=== PATIENT | female | born 1955 | race African-American/Black ===

== ENCOUNTER 2023-06-21 22:06 | Inpatient (IN) | payer MEDICARE, MEDICAID ==
[~2023-06-21] VITALS: Ht 154.9 cm; Wt 108.6 kg
[~2023-06-21 22:06] MED LIST: K-DUR20 MEQ PO
[2023-06-22] VITALS (10 sets, daily range): BP systolic 95–127; BP diastolic 48–75; PULSE 58–78; TEMP 98.3–99.2
[2023-06-22] MEDS ORDERED: NORVASC 10MG10 MG PO (01:15)
[2023-06-22] MEDS ORDERED: ELIQUIS 5MG PO (01:15)
[2023-06-22] MEDS ORDERED: COZAAR100 MG PO (01:16)
[2023-06-22] MEDS ORDERED: HCTZ 25MG TAB25 MG PO (01:16)
[2023-06-22] MEDS ORDERED: ANTIVERT 12.512.5 MG PO (01:17)
[2023-06-22] MEDS ORDERED: TOPROL XL100 MG PO (01:19)
[2023-06-22] MEDS ORDERED: CRESTOR20 MG PO (01:19)
[2023-06-22] MEDS ORDERED: OSCAL 500 TAB500 MG PO (01:20)
[2023-06-22] MEDS ORDERED: TYLENOL 500MG500 MG PO (01:20)
[2023-06-22] MEDS ORDERED: VITAMINC500CH (01:20)
[2023-06-22] MEDS ORDERED: ZINC7.5 MG PO (01:21)
--- NOTE | 2023-06-22 01:52 | NUR ---
PT ARRIVED TO ROOM 323 A&OX4 COMPLAINT OF PAIN TO THE LEFT HIP. PT TRANSFERED OVER TO BED USING SLIDE BOARD. LUNG SOUNDS CLEAR, UNLARBORED BREATHING. HEART SOUNDS NORMAL REGULAR RATE. LEFT LEG SLIGHTLY SHORTER THAN RIGHT WITH SOME ROTATION. BLE EDEMA NOTED, NON PITTING. [place] CATHETER WAS INSERTED DUE TO HIP FRACTURE AND PT BEING INCONTINENT. [place] CATHETER INSERTED USING STERILE TECHNIQUE, PT TOLERATED WELL, 10ML STERILE WATER FILLED BALLOON. CLEAR YELLOW URINE DRAINED FROM [place], UA SENT TO LAB. PT DID STATE SHE HIT HER HEAD WHEN SHE FELL, NEURO CHECKS STARTED GCS 15.
[2023-06-22 06:56] LABS: COLLECTION METHOD IN
[2023-06-22 07:35] LABS: BASO % 0.1 % (0.0-2.0); GRAN # 6.7 K/mm3 (1.4-6.5); GRAN % 77.7 % (42.2-75.2); HEMOGLOBIN 10.6 g/dl (12.5-16.0); LYMPH # 1.4 K/mm3 (1.2-3.4); LYMPH % 16.3 % (20.0-51.0); MEAN CELL VOLUME 90 fl (80.0-100.0); MEAN CORPUSCULAR HEMOGLOBIN 30 pg (27-31); MEAN CORPUSCULAR HGB CONC 33 g/dl (33.0-37.0); MEAN PLATELET VOLUME 10.3 fl (7.4-10.4); MONO # 0.5 K/mm3 (0.1-0.6); MONO % 5.7 % (1.7-9.3); PLATELET COUNT 234 K/mm3 (130-400); RED BLOOD COUNT 3.57 M/mm3 (4.10-5.30); REDCELL DISTRIBUTION WIDTH-CV 13.4 % (11.5-14.5)
[2023-06-22 07:37] LABS: HEMATOCRIT 32.2 % (37.0-47.0)
[2023-06-22 07:50] LABS: URINE APPEARANCE Clear (CLEAR/HAZY); URINE BLOOD Negative (NEGATIVE); URINE COLOR Yellow (YELLOW); URINE GLUCOSE Negative (NEGATIVE); URINE KETONE TRACE (NEGATIVE); URINE NITRATE Negative (NEGATIVE); URINE PROTEIN(semi-quant) Negative (NEGATIVE); URINE UROBILINOGEN 0.2 E.U/dL (0.2-1.0)
[2023-06-22 07:51] LABS: SQUAMOUS EPITHELIAL 0-2 /hpf (0-10); URINE RBC 0-2 /hpf (0-2); URINE WBC None Seen /hpf (0-2)
[2023-06-22 08:05] LABS: ALBUMIN 3.3 gm/dL (3.4-4.8); BILIRUBIN,TOTAL 0.8 mg/dL (0.2-1.2); CALCIUM 9.7 mg/dL (8.4-10.2); CREATININE, serum 0.7 mg/dL (0.57-1.11); POTASSIUM 4.1 mmol/L (3.5-4.5); TOTAL PROTEIN 6.8 gm/dL (6.2-8.1)
--- NOTE | 2023-06-22 08:07 | NUR ---
PT RESTING IN BED, DAUGHTER AT BEDSIDE DURING REPORT THEN LEFT FOR THE DAY. PT IS A/O X4, RATING PAIN 10/10 BUT NO OUTWARD SIGNS OF PAIN. PT QUIETLY WATCHING TV. PT TOOK ELOQUIS AND NEEDS 48 HRS TO CLEAR FOR SURGERY PER DR. MIN.
[2023-06-22 10:04] LABS: HEMOGLOBIN 10.7 g/dl (12.5-16.0); MEAN CELL VOLUME 92 fl (80.0-100.0); MEAN CORPUSCULAR HEMOGLOBIN 30 pg (27-31); MEAN CORPUSCULAR HGB CONC 33 g/dl (33.0-37.0); PLATELET COUNT 236 K/mm3 (130-400); RED BLOOD COUNT 3.56 M/mm3 (4.10-5.30); REDCELL DISTRIBUTION WIDTH-CV 13.4 % (11.5-14.5)
[2023-06-22 10:12] LABS: HEMATOCRIT 32.6 % (37.0-47.0)
[2023-06-22] MEDS ORDERED: ANTIVERT 25MG25 MG PO (13:22)
[2023-06-22] MEDS ORDERED: LASIX 20MG TABL20 MG PO (13:27)
[2023-06-22] MEDS ORDERED: OMEGA-3 FISH1000 MG PO (13:28)
--- NOTE | 2023-06-22 14:16 | NUR ---
tube worker met with patient to complete discharge planning. Pt lives alone in [place]. Pt sees Kinga Ugalde for PCP needs and obtains medications from [facility] with no difficulties. Patient has her daughters, marlene and Rianna listed as contacts. Pt said her son, Isaac will also come visit her. Pt says she needs assistance with ADLS, her daughters help her out. She does sponge baths when she needs. She cannot bend down she reports. Pt said this is due to increased weakness and pain. She uses a seated walker, hospital bed, and CPAP for DME. She does not have a DPOA-HC, but completed one with YOMAIRA listing her two daughters. Clerk Boggs and YOMAIRA were witnesses. Copy and original provided. Copy in chart. YOMAIRA informed pt that PT/OT will come and evalaute her when needed to assess for further needs. Pt was agreeable to this. PT/OT pending after surgery per YOMAIRA Black. Discharge Plan: tbd
--- NOTE | 2023-06-22 19:49 | NUR ---
PATIENT SITTING UP IN BED WITH FAMILY AT BEDSIDE. PATIENT ALERT AND ORIENTED. SHIFT ASSESSMENT COMPLETED. EDEMA TO BLE PITTING +1 WITH NO DISCOLORATION OR TENDERNESS. PATIENT STATES PAIN IS 4/10. OXYCODONE GIVEN PER MAR. PATIENT EDUCATED ON NPO STATUS IN EFFECT AT 0000. ALL QUESTIONS ANSWERED. PATIENT DENIES ANY NEEDS OR CONCERNS AT THIS TIME. WILL CONT TO MONITOR.
[2023-06-23] VITALS (15 sets, daily range): BP systolic 89–119; BP diastolic 32–71; PULSE 67–80; TEMP 97.1–98.9
--- NOTE | 2023-06-23 02:33 | NUR ---
PATIENT HAS SLEPT NEARLY ALL SHIFT. NO COMPLAINTS OF PAIN OR DISCOMFORT AT THIS TIME. WILL CONT TO MONITOR.
[2023-06-23 08:56] LABS: BASO % 0.2 % (0.0-2.0); EOS # 0.1 K/mm3 (0.0-0.7); EOS % 1.3 % (0.0-4.0); GRAN % 80.9 % (42.2-75.2); HEMOGLOBIN 10.2 g/dl (12.5-16.0); LYMPH % 11.5 % (20.0-51.0); MEAN CELL VOLUME 93 fl (80.0-100.0); MEAN CORPUSCULAR HEMOGLOBIN 29 pg (27-31); MEAN CORPUSCULAR HGB CONC 31 g/dl (33.0-37.0); MONO # 0.5 K/mm3 (0.1-0.6); MONO % 5.9 % (1.7-9.3); PLATELET COUNT 221 K/mm3 (130-400); RED BLOOD COUNT 3.53 M/mm3 (4.10-5.30); REDCELL DISTRIBUTION WIDTH-CV 13.8 % (11.5-14.5)
[2023-06-23 09:10] LABS: CALCIUM 9.5 mg/dL (8.4-10.2); CREATININE, serum 0.74 mg/dL (0.57-1.11); HEMATOCRIT 32.8 % (37.0-47.0); POTASSIUM 4.3 mmol/L (3.5-4.5)
--- NOTE | 2023-06-23 14:08 | NUR ---
D: Initial visit: Building Maintenance Custodian stopped by room on rounds. Pt was resting and content. A: Pt asked for prayer. Building Maintenance Custodian prayed with pt and she appreciated the visit. P: Building Maintenance Custodian informed pt that if she needed anything to let her nurse know. Building Maintenance Custodian will follow up as needed.
--- NOTE | 2023-06-23 14:45 | NUR ---
bottling room worker presented Medicare.gov list of options for SNF and discussed IPR services. Patient would like IPR to be her first choice but will review the options for SNF. SW will follow up with patient for her other choices.
--- NOTE | 2023-06-23 16:47 | NUR ---
stamping die try out worker stopped by patient's room, patient was not back from surgery yet and her family members were not in the room. SW attempted to contact patient's daughter, Alanna. SW was sent to [employer]. SW contacted daughter, Rianna. Rianna expressed she would like to wait to see if inpatient rehab is able to accept patient before sending other referrals. Rianna expressed they would discuss with her mother other options but at this time they are unable to provide another choice besides IPR. YOMAIRA notified IPR director. YOMAIRA will continue to follow.
[2023-06-23 19:47] LABS: BASO % 0.1 % (0.0-2.0); EOS % 0.1 % (0.0-4.0); GRAN # 13.6 K/mm3 (1.4-6.5); GRAN % 85.2 % (42.2-75.2); LYMPH # 1.6 K/mm3 (1.2-3.4); LYMPH % 9.7 % (20.0-51.0); MEAN CELL VOLUME 94 fl (80.0-100.0); MEAN CORPUSCULAR HGB CONC 32 g/dl (33.0-37.0); MEAN PLATELET VOLUME 9.9 fl (7.4-10.4); MONO # 0.7 K/mm3 (0.1-0.6); MONO % 4.4 % (1.7-9.3); PLATELET COUNT 221 K/mm3 (130-400); RED BLOOD COUNT 2.51 M/mm3 (4.10-5.30); REDCELL DISTRIBUTION WIDTH-CV 13.6 % (11.5-14.5)
--- NOTE | 2023-06-23 20:00 | NUR ---
pt returned to room 323 from PACU per bed, accompanied by DIRECTOR OF EDUCATION AND TRAINING, family members present as well. pt alert and oriented x4, slightly drowsy but easily awakens, bulky surgical dressing present to left hip, no drainage noted, adan draining clear, yamila colored urine. IVF infusing per PIV in RH per gravity. pt placed on vitals machine, BP slightly decreased, sales estimator notified Lorenzo Clemens APRN, fluid bolus per pacu nurse, able to bring sbp >100, pt also placed on 2L O2 per NC prior to leaving pacu, will wean as tolerated. CMS intact to LLE, no reported pain or discomfort at this time. oriented pt and family to room, floor and plan of care.
[2023-06-23 20:45] LABS: HEMATOCRIT 23.6 % (37.0-47.0); MEAN CORPUSCULAR HEMOGLOBIN 30 pg (27-31)
[2023-06-23 20:46] LABS: HEMOGLOBIN 7.5 g/dl (12.5-16.0)
[2023-06-24] VITALS (12 sets, daily range): BP systolic 94–116; BP diastolic 58–85; PULSE 80–96; TEMP 98.6–99.6
--- NOTE | 2023-06-24 05:45 | NUR ---
pt on RA this am, BP remains soft, pain reported x1, relieved with IV meds, IVF infusing per PIV, adan patent/secure, dressing to left hip cdi. SR on tele.
[2023-06-24 07:10] LABS: BASO % 0.2 % (0.0-2.0); GRAN # 7.2 K/mm3 (1.4-6.5); GRAN % 73.9 % (42.2-75.2); LYMPH # 1.6 K/mm3 (1.2-3.4); LYMPH % 16.8 % (20.0-51.0); MEAN CELL VOLUME 92 fl (80.0-100.0); MEAN CORPUSCULAR HGB CONC 32 g/dl (33.0-37.0); MEAN PLATELET VOLUME 10.5 fl (7.4-10.4); MONO # 0.8 K/mm3 (0.1-0.6); MONO % 8.7 % (1.7-9.3); PLATELET COUNT 209 K/mm3 (130-400); RED BLOOD COUNT 2.61 M/mm3 (4.10-5.30); REDCELL DISTRIBUTION WIDTH-CV 13.6 % (11.5-14.5)
[2023-06-24 07:13] LABS: HEMATOCRIT 23.9 % (37.0-47.0); HEMOGLOBIN 7.7 g/dl (12.5-16.0); MEAN CORPUSCULAR HEMOGLOBIN 30 pg (27-31)
[2023-06-24 07:27] LABS: CALCIUM 8.4 mg/dL (8.4-10.2); CREATININE, serum 0.81 mg/dL (0.57-1.11); POTASSIUM 4.2 mmol/L (3.5-4.5)
--- NOTE | 2023-06-24 08:53 | NUR ---
PT RESTING IN BED, AM MEDS GIVEN ORDERED. LUNGS CTA, BOWEL SOUNDS ACTIVE. IV TO L WRIST RUNNING FLUIDS PER ORDER. [place] CATHETER TO DD WITH CLEAR YELLOW URINE. DRESSING TO LEFT HIP CDI WITH GAUZE/ABD MEDIPORE TAPE. PAIN CONTROLLED WITH PO/IV MEDS. PT EATING AND DRINKING W/O NAUSEA OR VOMITING.
--- NOTE | 2023-06-24 19:19 | NUR ---
PATIENT ALERT AND ORIENTED X4. VSS WITH BP BEING ON THE SOFT SIDE. IV INT, [place] DC'D. IV TO LEFT AC INT FLUSHES WELL. PATIENT REPORTS PAIN 6/10, REQUESTS PAIN MEDICATION. PATIENT MOVED TO BED, PUREWICK IN PLACE. NO FURTHER NEEDS. CALL LIGHT IN REACH. BED ALARM ON.
[2023-06-25] VITALS (13 sets, daily range): BP systolic 84–136; BP diastolic 45–71; PULSE 84–96; TEMP 98.4–99.8
--- NOTE | 2023-06-25 06:30 | NUR ---
PT attempted to void using purewick after adan dc'd yesterday, d/t pt's decreased mobility and size, purewick not working, complete bed changes x2, pt not comfortable attempting to get up to bsc. pt also, unable to help turn herself side to side in bed.
--- NOTE | 2023-06-25 07:00 | NUR ---
PT RESTING IN BED. PT IS AXOX3. PT IS ON RA. PT IS SR ON TELE. PT HAS CALL LIGHT AND INSTRUCTED TO CALL WITH ALL NEEDS. BEDALARM ACTIVE AND FALL PRECAUTIONS IN PLACE.
[2023-06-26] VITALS (12 sets, daily range): BP systolic 100–116; BP diastolic 57–70; PULSE 75–93; TEMP 97.8–98.9
--- NOTE | 2023-06-26 09:46 | NUR ---
PT RESTING IN BED WITH PAIN 6/10 IN BILATERAL HIPS. PT SWALLOWED PILLS WELL. PT ASSISTED TO CHAIR ASSIST X2 AND WALKER. PURWICK IN PLACE. WILL CONTINUE TO MONITOR.
[2023-06-27] VITALS (17 sets, daily range): BP systolic 92–111; BP diastolic 41–72; PULSE 82–96; TEMP 98.6–99.8
[2023-06-27 06:45] LABS: MEAN CELL VOLUME 92 fl (80.0-100.0); MEAN CORPUSCULAR HGB CONC 33 g/dl (33.0-37.0); PLATELET COUNT 261 K/mm3 (130-400); RED BLOOD COUNT 2.07 M/mm3 (4.10-5.30); REDCELL DISTRIBUTION WIDTH-CV 14.1 % (11.5-14.5)
[2023-06-27 06:52] LABS: HEMATOCRIT 19.1 % (37.0-47.0); HEMOGLOBIN 6.2 g/dl (12.5-16.0); MEAN CORPUSCULAR HEMOGLOBIN 30 pg (27-31)
--- NOTE | 2023-06-27 07:07 | NUR ---
DR COFFEY NOTIFIED OF AM HGB OF 6.2, ORDERS REC'D
--- NOTE | 2023-06-27 09:35 | NUR ---
PT RESTING IN BED WITH PAIN 6/10 IN LEFT HIP, ICE APPLIED AT THIS TIME. PT REPOT FEELING LIGHTHEADED AND THIS NURSE DISCUSSED STAYING IN BED UNTIL BLOOD TRANFUSION WAS COMPLETE. NO SKIN ISSUES. PURWICK IN PLACE. WILL CONTINUE TO MONITOR.
--- NOTE | 2023-06-27 11:49 | NUR ---
structural steel ironworker was notified patient would like referral sent to [facility] for SNF. SW met with patient to confirm she wanted a referral sent to [facility]. Patient confirmed. SW faxed referral to [facility]. SW will follow up to determine if they can accept. Discharge Plan: SNF
--- NOTE | 2023-06-27 12:30 | NUR ---
BLOOD TRANSFUSION STARTED AT THIS TIME. VITALS STABLE. SIGNS OF REACTION DISCUSSED AND TEACHBACK METHOD USED. WILL STAY AT BEDSIDE FRO 15 MINUTES AND THEN CONTINUE TO MONITOR.
--- NOTE | 2023-06-27 14:57 | NUR ---
BLOOD TRANSFUSION COMPLETE, NO SIGNS OF REACTION OR PT COMPLAINTS. VITALS STABLE. WILL CONTINUE TO MONITOR.
[2023-06-27 16:19] LABS: HEMATOCRIT 21.1 % (37.0-47.0)
--- NOTE | 2023-06-27 16:26 | NUR ---
food production worker was notified [facility] is wanting a chemistry lab draw. SW notified Dr. Oakley. YOMAIRA notified [facility] they should have those updates in the morning.
[2023-06-27 16:53] LABS: CALCIUM 8.5 mg/dL (8.4-10.2); CREATININE, serum 0.59 mg/dL (0.57-1.11); POTASSIUM 4.2 mmol/L (3.5-4.5)
--- NOTE | 2023-06-27 20:45 | NUR ---
PT A&O X4 LAYING IN BED. VSS ON ROOM AIR. DENYING N/V OR LIGHTHEADEDNESS. STATES PAIN IS 4/10 IN LEFT HIP, ICE PACK ON. INT TO LEFT AC PATENT. PUREWICK IN PLACE & SCDS ON. FALL PRECAUTIONS IN PLACE &CALL LIGHT IN REACH. PT DENYING FURTHER NEEDS.
[2023-06-28] VITALS (12 sets, daily range): BP systolic 99–117; BP diastolic 64–72; PULSE 82–90; TEMP 98.5–99.3
--- NOTE | 2023-06-28 08:45 | NUR ---
pt a&ox4 resting in bed. vss and tele in place. meds given and assessment complete. pt denies pain. left hip incision is cdi. scds to ble. BGL 123 this morning, not requiring insulin. INT to left ac patent. fall precautions in place. no needs at this time. call light in reach.
[2023-06-28 11:11] LABS: HEMATOCRIT 25.6 % (37.0-47.0); HEMOGLOBIN 8.3 g/dl (12.5-16.0)
--- NOTE | 2023-06-28 16:53 | NUR ---
reinforcing metal worker was notified by [facility] they have submitted for authorization through patient's insurance and was waiting to hear back if they were approved to accept. YOMAIRA faxed clinical updates to [facility]. Priyanka requested chemistry labs. YOMAIRA faxed chemistry labs to priyanka. Discharge plan: SNF
--- NOTE | 2023-06-28 20:50 | NUR ---
Patient assessed around 2014. Alert and oriented, and able to make needs known. Denies having pain and discomfort to left hip, but did have headache. Given scheduled Acetaminophen per orders. Peripheral INT to left AC flushed. Denies SOB and dyspnea. LS CTA in upper lobes, diminished in lower. HRR. Telemetry in place. BSAx4. Patient has purewick in place, clear yellow urine. Bulky/occlusive dressing to left hip is CDI. Ice to area. 2+ edema to BLE. Voices no questions, needs, or concerns at this time. In bed with call light within reach. High fall risk precautions in place. Bed alarm on.
[2023-06-29] VITALS (15 sets, daily range): BP systolic 101–118; BP diastolic 50–74; PULSE 76–92; TEMP 98.1–98.8
--- NOTE | 2023-06-29 05:26 | NUR ---
Patient has received scheduled Acetaminophen during the night per orders. Denies needing anything stronger for pain. Ice to left hip. Dressing remains CDI. Voices no questions, needs, or concerns at this time. In bed with call light within reach. High fall risk precautions in place. Bed alarm on.
[2023-06-29 06:43] LABS: BASO % 0.3 % (0.0-2.0); EOS # 0.2 K/mm3 (0.0-0.7); EOS % 3.2 % (0.0-4.0); GRAN # 4.3 K/mm3 (1.4-6.5); GRAN % 63.1 % (42.2-75.2); LYMPH # 1.8 K/mm3 (1.2-3.4); LYMPH % 26.3 % (20.0-51.0); MEAN CELL VOLUME 92 fl (80.0-100.0); MEAN CORPUSCULAR HGB CONC 32 g/dl (33.0-37.0); MEAN PLATELET VOLUME 9.4 fl (7.4-10.4); MONO # 0.4 K/mm3 (0.1-0.6); MONO % 6.4 % (1.7-9.3); PLATELET COUNT 305 K/mm3 (130-400); RED BLOOD COUNT 2.32 M/mm3 (4.10-5.30); REDCELL DISTRIBUTION WIDTH-CV 14.5 % (11.5-14.5)
[2023-06-29 06:52] LABS: HEMATOCRIT 21.3 % (37.0-47.0); HEMOGLOBIN 6.8 g/dl (12.5-16.0); MEAN CORPUSCULAR HEMOGLOBIN 29 pg (27-31)
[2023-06-29 07:04] LABS: CALCIUM 8.9 mg/dL (8.4-10.2); CREATININE, serum 0.56 mg/dL (0.57-1.11); POTASSIUM 3.7 mmol/L (3.5-4.5)
--- NOTE | 2023-06-29 07:19 | NUR ---
called hgb result of 6.8 to Nely WORKMAN
--- NOTE | 2023-06-29 10:00 | NUR ---
pt a&ox3 resting in bed, meds given and assessment complete. pt denies pain. left hip incision is cdi. BGL 103 this morning, not requiring insulin. scds to ble. INT to left ac patent. fall precautions in place. no needs at this time. call light in reach.
--- NOTE | 2023-06-29 10:10 | NUR ---
transfusion started. vss. pt instructed on signs of transfusion reaction.
--- NOTE | 2023-06-29 10:25 | NUR ---
pt tolerated first 15 minutes of transfusion, rate increased to 120ml/hr.
--- NOTE | 2023-06-29 12:41 | NUR ---
YOMAIRA emailed updates to Kim Zaldivar at [facility]. Kim expressed they were still waiting for authorization from patient's insurance. Discharge Plan: SNF
--- NOTE | 2023-06-29 12:45 | NUR ---
transfusion complete. pt tolerated well. vss.
[2023-06-29 15:47] LABS: HEMATOCRIT 26.8 % (37.0-47.0); HEMOGLOBIN 8.8 g/dl (12.5-16.0)
--- NOTE | 2023-06-29 19:28 | NUR ---
Received change of shift report from day shift nurse. Patient resting in bed, call light in reach.
[2023-06-30] VITALS (12 sets, daily range): BP systolic 106–122; BP diastolic 62–75; PULSE 76–93; TEMP 98–98.7
--- NOTE | 2023-06-30 06:48 | NUR ---
Change of shift report given to day shift nurseNiya.
[2023-06-30 07:02] LABS: BASO % 0.4 % (0.0-2.0); EOS # 0.3 K/mm3 (0.0-0.7); EOS % 4.4 % (0.0-4.0); GRAN % 65.9 % (42.2-75.2); LYMPH # 1.6 K/mm3 (1.2-3.4); LYMPH % 21.4 % (20.0-51.0); MEAN CELL VOLUME 90 fl (80.0-100.0); MEAN CORPUSCULAR HGB CONC 33 g/dl (33.0-37.0); MEAN PLATELET VOLUME 9.7 fl (7.4-10.4); MONO # 0.5 K/mm3 (0.1-0.6); MONO % 7.1 % (1.7-9.3); PLATELET COUNT 312 K/mm3 (130-400); REDCELL DISTRIBUTION WIDTH-CV 14.5 % (11.5-14.5)
[2023-06-30 07:03] LABS: HEMATOCRIT 26.2 % (37.0-47.0); HEMOGLOBIN 8.6 g/dl (12.5-16.0); MEAN CORPUSCULAR HEMOGLOBIN 30 pg (27-31)
[2023-06-30 07:12] LABS: CALCIUM 8.9 mg/dL (8.4-10.2); CREATININE, serum 0.59 mg/dL (0.57-1.11); POTASSIUM 4.1 mmol/L (3.5-4.5)
--- NOTE | 2023-06-30 09:28 | NUR ---
pt a&ox3 sitting up in recliner. meds given and assessment complete. vss and tele in place. BGL 100, no insulin required. aqaucell dressing applied to left hip, incision is cdi. INT to left ac patent. fall precautions in place. no needs at this time. call light in reach.
--- NOTE | 2023-06-30 12:08 | NUR ---
assisted pt x1 assist with walker to bsc. pt had large hard bowel movement.
--- NOTE | 2023-06-30 13:54 | NUR ---
certified social workers in health care was notified by [facility]anka they are still pending authorization with patient's insurance.
--- NOTE | 2023-06-30 14:00 | NUR ---
damper worker faxed [facility] clinical updates.
--- NOTE | 2023-06-30 21:19 | NUR ---
patient lying in bed alert and oriented x4. pt denies chest pain and shortness of breath. reports aching pain in the left hip rated 6/10, scheduled tylenol given per orders. Left hip incision site is clean dry and intact with accuacel dressing. +1 pitting edema in BLE, no additional skin abnormalities noted. IV in LAC is patent, site is clean dry and inteact. pt has no further needs, questions or concerns at this time. fall precautions in place, will continue to monitor.
[2023-07-01] VITALS (12 sets, daily range): BP systolic 92–122; BP diastolic 61–81; PULSE 81–89; TEMP 98.1–98.5
--- NOTE | 2023-07-01 07:34 | NUR ---
PT LAYING IN BED, ALERT AND ORIENTEDX4. NO COMPLAINTS OF PAIN AT THIS TIME. PT USING PURWICK FOR VOIDING. DRESSING ON LEFT HIP IS CLEAN, DRY, INTACT. ASSESSED. CALL LIGHT WITHIN REACH.
[2023-07-01 08:33] LABS: BASO % 0.3 % (0.0-2.0); EOS # 0.3 K/mm3 (0.0-0.7); EOS % 4.1 % (0.0-4.0); GRAN # 5.3 K/mm3 (1.4-6.5); GRAN % 71.6 % (42.2-75.2); HEMATOCRIT 25.4 % (37.0-47.0); LYMPH # 1.3 K/mm3 (1.2-3.4); LYMPH % 18.1 % (20.0-51.0); MEAN CELL VOLUME 95 fl (80.0-100.0); MEAN CORPUSCULAR HEMOGLOBIN 30 pg (27-31); MEAN CORPUSCULAR HGB CONC 32 g/dl (33.0-37.0); MEAN PLATELET VOLUME 9.8 fl (7.4-10.4); MONO # 0.4 K/mm3 (0.1-0.6); MONO % 5.5 % (1.7-9.3); PLATELET COUNT 310 K/mm3 (130-400); RED BLOOD COUNT 2.67 M/mm3 (4.10-5.30); REDCELL DISTRIBUTION WIDTH-CV 14.8 % (11.5-14.5)
[2023-07-01 08:47] LABS: CALCIUM 8.9 mg/dL (8.4-10.2); CREATININE, serum 0.57 mg/dL (0.57-1.11); POTASSIUM 3.8 mmol/L (3.5-4.5)
--- NOTE | 2023-07-01 12:19 | NUR ---
SW faxed updated clinicals, YOMAIRA was informed by PA that patient would be remaining in care for another day, to monitor patients hemoglobin possible d/c Monday.
[2023-07-02 00:39] VITALS: BP_SYST 96
[2023-07-02 03:47] VITALS: BP 105/70; PULSE 82; TEMP 98.3
[2023-07-02 04:11] VITALS: BP_SYST 105
[2023-07-02 06:57] LABS: BASO % 0.3 % (0.0-2.0); EOS # 0.2 K/mm3 (0.0-0.7); EOS % 3.5 % (0.0-4.0); GRAN # 4.6 K/mm3 (1.4-6.5); GRAN % 67.3 % (42.2-75.2); LYMPH # 1.5 K/mm3 (1.2-3.4); LYMPH % 21.9 % (20.0-51.0); MEAN CELL VOLUME 95 fl (80.0-100.0); MEAN CORPUSCULAR HGB CONC 32 g/dl (33.0-37.0); MEAN PLATELET VOLUME 9.2 fl (7.4-10.4); MONO # 0.4 K/mm3 (0.1-0.6); MONO % 6.3 % (1.7-9.3); PLATELET COUNT 380 K/mm3 (130-400); RED BLOOD COUNT 2.69 M/mm3 (4.10-5.30); REDCELL DISTRIBUTION WIDTH-CV 14.8 % (11.5-14.5)
[2023-07-02 07:06] LABS: CALCIUM 8.6 mg/dL (8.4-10.2); CREATININE, serum 0.56 mg/dL (0.57-1.11); POTASSIUM 3.8 mmol/L (3.5-4.5)
[2023-07-02 07:09] LABS: HEMATOCRIT 25.6 % (37.0-47.0); HEMOGLOBIN 8.1 g/dl (12.5-16.0); MEAN CORPUSCULAR HEMOGLOBIN 30 pg (27-31)
--- NOTE | 2023-07-02 07:21 | NUR ---
Patient laying in bed A&Ox4. VSS. IV CDI. Denies pain and discomfort. SCD bilateral legs. Incision site LF hip CDI, ice applied. Purewick in place. No further needs expressed. Call light within reach
[2023-07-02 07:43] VITALS: BP 101/66; PULSE 81; TEMP 98
[2023-07-02 08:05] VITALS: BP_SYST 101
[2023-07-02] MEDS ORDERED: TOPROL XL 50MG50 MG PO (08:34)
[2023-07-02] MEDS ORDERED: ASPI325T6 PO (08:35)
[2023-07-02] MEDS ORDERED: NATURAL IRON65 MG PO (08:38)
--- NOTE | 2023-07-02 10:30 | NUR ---
Report called to [facility]. Patient transfered by wheelchair to [facility]. Discharge paperwork and personal belongings with the patient. IV removed, tip intact. Gauze and coban covering. No further needs expressed
--- NOTE | 2023-07-02 10:39 | NUR ---
Bruise Trimmer notified that patient is ready for discharge. YOMAIRA faxed clinical updates to Kim at [facility] who advised they have authorization from insurance and can accept today. Transport time set for 1030. YOMAIRA faxed discharge orders. YOMAIRA contacted patient's daughter, Rianna and provided update on discharge and transport time. Discharge Plan: [facility]
== END 2023-07-02 10:51 | DRG 482 ==
LOC: SURG 22:06
PROVIDERS: Internal Medicine; Nurse Practitioner Primary Care; Orthopaedic Surgery; Physician Assistant; ADMIT Internal Medicine
PROC: 0QS704Z Reposition Left Upper Femur with Internal Fixation Device, Open Approach (ICD-10-PCS; principal; 2023-06-22)
DX: S72.002A Fracture of unspecified part of neck of left femur, initial encounter for closed fracture (principal); D64.9 Anemia, unspecified; I48.0 Paroxysmal atrial fibrillation; I10 Essential (primary) hypertension; E78.5 Hyperlipidemia, unspecified; R73.03 Prediabetes; R42 Dizziness and giddiness
CPT/HCPCS: A9284; C1713; J0665; J0690; J1170; J1644; J1650; J2250; J2405; J2704; J3010; J3370; J7030; J7120; P9016

== ENCOUNTER → 2023-07-04 | Outpatient (REF) | payer MEDICARE, MEDICAID ==
[~2023-07-04] MED LIST changes: +ANTIVERT 12.512.5 MG PO; +ANTIVERT 25MG25 MG PO; +ASPI325T6 PO; +COZAAR100 MG PO; +CRESTOR20 MG PO; +ELIQUIS 5MG PO; +HCTZ 25MG TAB25 MG PO; +LASIX 20MG TABL20 MG PO; +NATURAL IRON65 MG PO; +NORVASC 10MG10 MG PO; +OMEGA-3 FISH1000 MG PO; +OSCAL 500 TAB500 MG PO; +TOPROL XL 50MG50 MG PO; +TOPROL XL100 MG PO; +TYLENOL 500MG500 MG PO; +VITAMINC500CH; +ZINC7.5 MG PO
[2023-07-04 10:32] LABS: BASO % 0.1 % (0.0-2.0); EOS # 0.3 K/mm3 (0.0-0.7); EOS % 3.9 % (0.0-4.0); GRAN # 5.2 K/mm3 (1.4-6.5); LYMPH # 1.2 K/mm3 (1.2-3.4); LYMPH % 16.6 % (20.0-51.0); MEAN CELL VOLUME 98 fl (80.0-100.0); MEAN CORPUSCULAR HGB CONC 30 g/dl (33.0-37.0); MEAN PLATELET VOLUME 9.1 fl (7.4-10.4); MONO # 0.4 K/mm3 (0.1-0.6); MONO % 5.8 % (1.7-9.3); PLATELET COUNT 430 K/mm3 (130-400); RED BLOOD COUNT 2.74 M/mm3 (4.10-5.30); REDCELL DISTRIBUTION WIDTH-CV 15.2 % (11.5-14.5)
[2023-07-04 10:33] LABS: HEMATOCRIT 26.8 % (37.0-47.0); HEMOGLOBIN 8.1 g/dl (12.5-16.0); MEAN CORPUSCULAR HEMOGLOBIN 30 pg (27-31)
[2023-07-04 10:40] LABS: CALCIUM 8.8 mg/dL (8.4-10.2); CREATININE, serum 0.59 mg/dL (0.57-1.11); POTASSIUM 4.1 mmol/L (3.5-4.5)
== END ==
LOC: ZCOL.LAB 10:28
PROVIDERS: Internal Medicine
DX: I10 Essential (primary) hypertension (principal); D64.9 Anemia, unspecified; M84.459A Pathological fracture, hip, unspecified, initial encounter for fracture

== ENCOUNTER → 2023-08-25 | Outpatient (CLI) | payer MEDICARE, MEDICAID | LOC: COL.RAD 10:10 | DX: M25.552 Pain in left hip (principal); Z98.890 Other specified postprocedural states ==

== ENCOUNTER → 2023-09-19 | Outpatient (REF) | payer MEDICARE, MEDICAID ==
[2023-09-19 10:48] LABS: BASO % 0.7 % (0.0-2.0); EOS # 0.1 K/mm3 (0.0-0.7); EOS % 2.5 % (0.0-4.0); GRAN # 3.2 K/mm3 (1.4-6.5); GRAN % 57.2 % (42.2-75.2); HEMOGLOBIN 10.8 g/dl (12.5-16.0); LYMPH # 1.9 K/mm3 (1.2-3.4); LYMPH % 34.4 % (20.0-51.0); MEAN CELL VOLUME 91 fl (80.0-100.0); MEAN CORPUSCULAR HEMOGLOBIN 28 pg (27-31); MEAN CORPUSCULAR HGB CONC 31 g/dl (33.0-37.0); MEAN PLATELET VOLUME 9.8 fl (7.4-10.4); MONO # 0.3 K/mm3 (0.1-0.6); PLATELET COUNT 278 K/mm3 (130-400); RED BLOOD COUNT 3.88 M/mm3 (4.10-5.30); REDCELL DISTRIBUTION WIDTH-CV 14.7 % (11.5-14.5)
[2023-09-19 10:52] LABS: HEMATOCRIT 35.4 % (37.0-47.0)
[2023-09-19 11:01] LABS: ALBUMIN 2.7 gm/dL (3.4-4.8); BILIRUBIN,TOTAL 0.3 mg/dL (0.2-1.2); CALCIUM 9.7 mg/dL (8.4-10.2); CHOLESTEROL RISK RATIO 4.7; CREATININE, serum 0.67 mg/dL (0.57-1.11); POTASSIUM 4.4 mmol/L (3.5-4.5); TOTAL PROTEIN 6.2 gm/dL (6.2-8.1)
[2023-09-19 11:22] LABS: THYROID STIMULATING HORMONE 0.693 uIU/mL (0.350-4.940)
== END ==
LOC: ZCOL.LAB 09:46
PROVIDERS: Internal Medicine
DX: Z01.89 Encounter for other specified special examinations (principal)

== ENCOUNTER → 2023-12-18 | Outpatient (CLI) | payer MEDICARE, MEDICAID ==
[2023-12-18 20:03] LABS: BASO % 0.2 % (0.0-2.0); EOS # 0.2 K/mm3 (0.0-0.7); EOS % 2.9 % (0.0-4.0); GRAN # 5.8 K/mm3 (1.4-6.5); LYMPH # 1.8 K/mm3 (1.2-3.4); LYMPH % 21.5 % (20.0-51.0); MEAN CELL VOLUME 96 fl (80.0-100.0); MEAN CORPUSCULAR HGB CONC 30 g/dl (33.0-37.0); MEAN PLATELET VOLUME 9.5 fl (7.4-10.4); MONO # 0.4 K/mm3 (0.1-0.6); MONO % 5.2 % (1.7-9.3); PLATELET COUNT 382 K/mm3 (130-400); RED BLOOD COUNT 3.31 M/mm3 (4.10-5.30); REDCELL DISTRIBUTION WIDTH-CV 15.8 % (11.5-14.5)
[2023-12-18 20:04] LABS: HEMATOCRIT 31.8 % (37.0-47.0); HEMOGLOBIN 9.6 g/dl (12.5-16.0); MEAN CORPUSCULAR HEMOGLOBIN 29 pg (27-31)
== END ==
LOC: ZCOL.LAB 19:28
PROVIDERS: Internal Medicine
DX: D50-D89 Diseases of the blood and blood-forming organs and certain disorders involving the immune mechanism (principal)